=== PATIENT | female | born 1980 | race Caucasian/White ===

== ENCOUNTER 2018-09-14 17:11 | Emergency (ER) | payer OTHER ==
[2018-09-14 18:54] LABS: Urine Blood TRACE (NEG); Urine Glucose NEGATIVE (NEG); Urine Protein NEGATIVE (NEG); Urine Specific Gravity 1.025 (1.005-1.030)
[2018-09-14 19:13] LABS: Urine Bacteria <20 /HPF (<20); Urine Culture Reflex Order NOT NEEDED; Urine RBC <5 /HPF (NONE SEEN)
[2018-09-14 19:23] LABS: Absolute Lymphocytes (CBC) 2.7 K/uL (0.7-4.9); Absolute Monocytes 0.7 K/uL (0.1-1.3); Absolute Neutrophil 9.2 K/uL (1.8-8.0); Basophils % 0.7 % (0-1.3); Eosinophils % 2.2 % (0-4.4); Hematocrit 39.8 % (36.0-45.0); Lymphocytes % 20.8 % (15.3-44.8); MCH 31.1 pg (27.0-35.0); MCV 90.6 fL (80-100); MPV 7.9 fL (7.6-11.3); Monocytes % 5.3 % (3.3-12.3); RBC Red Blood Cell Count 4.39 M/uL (3.86-4.86)
[2018-09-14 20:05] LABS: BUN Blood Urea Nitrogen 10 mg/dL (7-18); Bicarbonate 28 mmol/L (21-32); Glucose Level 97 mg/dL (74-106); HCG, Quantitative 2494 mIU/mL (1-3); Potassium 3.4 mmol/L (3.5-5.1); Sodium Level 140 mmol/L (136-145)
--- NOTE | 2018-09-14 20:22 | EDPHYS ---
Physician Documentation [facility] Name: Vickie Aleman Age: 37 yrs Sex: Female : 1980 Arrival Date: 09/14/2018 Time: 17:16 Bed 30 Private MD: ED Physician Kenneth Watson HPI: 09/14 19:49 This 37 yrs old Female presents to ER via Ambulatory with complaints of snw Abdominal Pain. 19:49 The patient presents with abdominal pain in the lower abdomen. Onset: The snw symptoms/episode began/occurred suddenly, 3 day(s) ago, and became persistent. The symptoms do not radiate. Associated signs and symptoms: none. The symptoms are described as crampy. Modifying factors: The symptoms are alleviated by nothing. It is unknown whether or not the patient has had similar symptoms in the past. The patient has not recently seen a physician. 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 It has been more than one year since last vaccine. - Social history:: Smoking status: Patient/guardian denies using tobacco, never smoked. - Ebola Screening: : Patient negative for fever greater than or equal to 101.5 degrees Fahrenheit, and additional compatible Ebola Virus Disease symptoms Patient denies exposure to infectious person Patient denies travel to an Ebola-affected area in the 21 days before illness onset. ROS: 19:47 Constitutional: Negative for fever, chills, and weight loss, Eyes: Negative for injury, snw pain, redness, and discharge, ENT: Negative for injury, pain, and discharge, Neck: Negative for injury, pain, and swelling, Cardiovascular: Negative for chest pain, palpitations, and edema, Respiratory: Negative for shortness of breath, cough, wheezing, and pleuritic chest pain, Back: Negative for injury and pain, : Negative for injury, bleeding, discharge, and swelling, MS/Extremity: Negative for injury and deformity, Skin: Negative for injury, rash, and discoloration, Neuro: Negative for headache, weakness, numbness, tingling, and seizure. 19:47 Abdomen/GI: Positive for abdominal pain, . Exam: 19:47 Constitutional: This is a well developed, well nourished patient who is awake, alert, snw and in no acute distress. Head/Face: Normocephalic, atraumatic. Eyes: Pupils equal round and reactive to light, extra-ocular motions intact. Lids and lashes normal. Conjunctiva and sclera are non-icteric and not injected. Cornea within normal limits. Periorbital areas with no swelling, redness, or edema. ENT: Nares patent. No nasal discharge, no septal abnormalities noted. Tympanic membranes are normal and external auditory canals are clear. Oropharynx with no redness, swelling, or masses, exudates, or evidence of obstruction, uvula midline. Mucous membranes moist. Neck: Trachea midline, no thyromegaly or masses palpated, and no cervical lymphadenopathy. Supple, full range of motion without nuchal rigidity, or vertebral point tenderness. No Meningismus. Chest/axilla: Normal chest wall appearance and motion. Nontender with no deformity. No lesions are appreciated. Cardiovascular: Regular rate and rhythm with a normal S1 and S2. No gallops, murmurs, or rubs. Normal PMI, no JVD. No pulse deficits. Respiratory: Lungs have equal breath sounds bilaterally, clear to auscultation and percussion. No rales, rhonchi or wheezes noted. No increased work of breathing, no retractions or nasal flaring. Back: No spinal tenderness. No costovertebral tenderness. Full range of motion. Skin: Warm, dry with normal turgor. Normal color with no rashes, no lesions, and no evidence of cellulitis. MS/ Extremity: Pulses equal, no cyanosis. Neurovascular intact. Full, normal range of motion. Neuro: Awake and alert, GCS 15, oriented to person, place, time, and situation. Cranial nerves II-XII grossly intact. Motor strength 5/5 in all extremities. Sensory grossly intact. Cerebellar exam normal. Normal gait. Psych: Awake, alert, with orientation to person, place and time. Behavior, mood, and affect are within normal limits. 19:47 Abdomen/GI: Inspection: abdomen appears normal, Bowel sounds: normal, Palpation: mild abdominal tenderness, in the suprapubic area. Vital Signs: 17:49 BP 130 / 88; Pulse 91; Resp 16; Temp 98.3; Pulse Ox 100% on R/A; Weight 99.79 kg (R); rv Height 5 ft. 4 in. (162.56 cm) (R); Pain 7/10; 19:34 BP 113 / 69; Pulse 85; Resp 16; Pulse Ox 99% on R/A; rv 20:42 BP 139 / 97; Pulse 86; Resp 16; Pulse Ox 100% on R/A; rv 17:49 Body Mass Index 37.76 (99.79 kg, 162.56 cm) rv MDM: 17:48 Patient medically screened. snw 19:48 Data reviewed: vital signs, nurses notes. Data interpreted: Pulse oximetry: on room air snw is 99 %. Interpretation: normal. Counseling: I had a detailed discussion with the patient and/or guardian regarding: the historical points, exam findings, and any diagnostic results supporting the discharge/admit diagnosis. Awaiting: Ultrasound results. Special discussion: Based on the history and exam findings, there is no indication for further emergent testing or inpatient evaluation. I discussed with the patient/guardian the need to see the OB Gyne specialist for further evaluation of the symptoms. ED course: Pt is , last 2014. 09/14 17:41 Order name: Urine Culture [facility] 09/14 17:41 Order name: Urine Microscopic Only; Complete Time: 19:14 w 09/14 18:18 Order name: Urine Dipstick--Ancillary (enter results); Complete Time: 18:56 ms 09/14 18:18 Order name: Urine --Ancillary (enter results); Complete Time: 18:56 ms 09/14 18:56 Order name: Abo/rh Typing [facility] 09/14 18:56 Order name: Basic Metabolic Panel [facility] 09/14 17:41 Order name: Urine Test (obtain specimen); Complete Time: 18:19 snw 09/14 17:41 Order name: Urine Dipstick-Ancillary (obtain specimen); Complete Time: 18:19 w 09/14 18:56 Order name: CBC with Diff; Complete Time: 19:29 w 09/14 18:56 Order name: HCG-Quantitative; Complete Time: 20:20 snw 09/14 18:56 Order name: US Transvaginal Ob snw 09/14 18:57 Order name: ABO/RH typing; Complete Time: 20:20 EDMS 09/14 18:57 Order name: Basic Metabolic Panel; Complete Time: 20:20 EDMS 09/14 19:55 Order name: ABO/RH no charge; Complete Time: 19:56 EDMS 09/14 18:56 Order name: IV Saline Lock; Complete Time: 19:32 snw 09/14 18:56 Order name: Labs collected and sent; Complete Time: 19:32 snw 09/14 18:56 Order name: NPO; Complete Time: 19:32 snw Administered Medications: No medications were administered Disposition: 09/15 07:26 Co-signature as Attending Physician, Kenneth Watson MD I agree with the assessment and kdr plan of care. Disposition: 09/14/18 20:21 Discharged to Home. Impression: Threatened . - Condition is Stable. - Discharge Instructions: Threatened Miscarriage, First Trimester of , Pelvic Rest. - Prescriptions for Vitamin 27- 0.8 mg Oral Tablet - take 1 tablet by ORAL route once daily; 60 tablet. - Medication Reconciliation Form, Thank You Letter, Antibiotic Education, Prescription Opioid Use form. - Follow up: Private Physician; When: 2 - 3 days; Reason: Recheck today's complaints, Continuance of care, Re-evaluation by your physician. Follow up: Emergency Department; When: As needed; Reason: Worsening of condition. Follow up: Missy Fischer MD; When: 1 week; Reason: Recheck today's complaints, Continuance of care, Re-evaluation by your physician. Signatures: Dispatcher [employer] [facility] Kenneth Watson MD MD kdr Therrien, Shelly, COAL WASHER TENDER-C COAL WASHER TENDER-Patelw Long Martin RN RN rv Corrections: (The following items were deleted from the chart) 09/14 20:22 20:21 09/14/2018 20:21 Discharged to Home. Impression: Threatened . Condition snw is Stable. Forms are Medication Reconciliation Form, Thank You Letter, Antibiotic Education, Prescription Opioid Use. Follow up: Private Physician; When: 2 - 3 days; Reason: Recheck today's complaints, Continuance of care, Re-evaluation by your physician. Follow up: Emergency Department; When: As needed; Reason: Worsening of condition. sharad 20:43 20:22 09/14/2018 20:21 Discharged to Home. Impression: Threatened . Condition rv is Stable. Discharge Instructions: Threatened Miscarriage, First Trimester of , Pelvic Rest. Prescriptions for Vitamin 27-0.8 mg Oral Tablet - take 1 tablet by ORAL route once daily; 60 tablet. and Forms are Medication Reconciliation Form, Thank You Letter, Antibiotic Education, Prescription Opioid Use. Follow up: Private Physician; When: 2 - 3 days; Reason: Recheck today's complaints, Continuance of care, Re-evaluation by your physician. Follow up: Emergency Department; When: As needed; Reason: Worsening of condition. Follow up: Missy Fischer; When: 1 week; Reason: Recheck today's complaints, Continuance of care, Re-evaluation by your physician. sharad
--- NOTE | 2018-09-14 20:22 | ER ---
Nurse's Notes [facility] Name: Vickie Aleman Age: 37 yrs Sex: Female : 1980 Arrival Date: 09/14/2018 Time: 17:16 Bed 30 Private MD: Diagnosis: Threatened Presentation: 09/14 17:46 Presenting complaint: Patient states: "I WAS DOING THINGS AT THE HOUSE EARLIER WHEN I rv STARTED TO FEEL THE PAIN AT AROUND 1300H. IT IS LIKE CRAMPING OR SOMETIMES IT FEELS LIKE THERE IS SOMETHING PULLING. I AM A LITTLE BIT CONSTIPATED TOO.". Transition of care: patient was not received from another setting of care. Onset of symptoms was September 14, 2018 at 13:00. Risk Assessment: Do you want to hurt yourself or someone else? Patient reports no desire to harm self or others. Initial Sepsis Screen: Does the patient meet any 2 criteria? No. Patient's initial sepsis screen is negative. Does the patient have a suspected source of infection? No. Patient's initial sepsis screen is negative. Care prior to arrival: None. 17:46 Method Of Arrival: Ambulatory rv 17:46 Acuity: MELLO 3 rv Triage Assessment: 18:19 General: Appears in no apparent distress. uncomfortable, Behavior is calm, cooperative. rv Pain: Complains of pain in abdomen Pain currently is 7 out of 10 on a pain scale. 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 It has been more than one year since last vaccine. - Social history:: Smoking status: Patient/guardian denies using tobacco, never smoked. - Ebola Screening: : Patient negative for fever greater than or equal to 101.5 degrees Fahrenheit, and additional compatible Ebola Virus Disease symptoms Patient denies exposure to infectious person Patient denies travel to an Ebola-affected area in the 21 days before illness onset. Screenin:50 Abuse screen: Denies threats or abuse. Denies injuries from another. Nutritional rv screening: No deficits noted. Tuberculosis screening: No symptoms or risk factors identified. Fall Risk None identified. Assessment: 18:20 General: Appears in no apparent distress. uncomfortable, Behavior is calm, cooperative. rv Pain: Complains of pain in abdomen Pain currently is 7 out of 10 on a pain scale. Neuro: Level of Consciousness is awake, alert, obeys commands, Oriented to person, place, time, situation. Cardiovascular: Capillary refill < 3 seconds. Respiratory: Airway is patent. GI: Bowel sounds present X 4 quads. Abd is soft X 4 quads. : No signs and/or symptoms were reported regarding the genitourinary system. EENT: No signs and/or symptoms were reported regarding the EENT system. Derm: Skin is intact. Musculoskeletal: No signs and/or symptoms reported regarding the musculoskeletal system. Vital Signs: 17:49 BP 130 / 88; Pulse 91; Resp 16; Temp 98.3; Pulse Ox 100% on R/A; Weight 99.79 kg (R); rv Height 5 ft. 4 in. (162.56 cm) (R); Pain 7/10; 19:34 BP 113 / 69; Pulse 85; Resp 16; Pulse Ox 99% on R/A; rv 20:42 BP 139 / 97; Pulse 86; Resp 16; Pulse Ox 100% on R/A; rv 17:49 Body Mass Index 37.76 (99.79 kg, 162.56 cm) rv ED Course: 17:16 Patient arrived in ED. rg4 17:47 Diane Roberts FNP-C is [facility]. snw 17:48 Kenneth Watson MD is Attending Physician. snw 17:48 Triage completed. rv 18:19 Urine --Ancillary (enter results) Sent. rv 18:19 Urine Dipstick--Ancillary (enter results) Sent. rv 18:20 Arm band placed on right wrist. rv 18:20 Patient has correct armband on for positive identification. Bed in low position. Call rv light in reach. Side rails up X 1. Pulse ox on. NIBP on. 19:10 Initial lab(s) drawn, by me, sent to lab. Inserted saline lock: 20 gauge in right rv antecubital area, using aseptic technique. Blood collected. 19:32 Basic Metabolic Panel Sent. rv 19:32 ABO/RH typing Sent. rv 19:32 HCG-Quantitative Sent. rv 19:32 Basic Metabolic Panel Sent. rv 19:32 Abo/rh Typing Sent. rv 19:33 Awaiting: ultrasound. rv 19:33 Urine Culture Sent. rv 20:17 US Transvaginal Ob In Process Unspecified. EDMS 20:22 Missy Fischer MD is Referral Physician. snw 20:42 No provider procedures requiring assistance completed. IV discontinued, bleeding rv controlled, No redness/swelling at site. Pressure dressing applied. Administered Medications: No medications were administered Outcome: 20:21 Discharge ordered by . snw 20:43 Discharged to home ambulatory. rv 20:43 Condition: good 20:43 Discharge instructions given to patient, Instructed on discharge instructions, follow up and referral plans. medication usage, Demonstrated understanding of instructions, follow-up care, medications, Prescriptions given X 1. 20:43 Patient left the ED. rv Signatures: Dispatcher [employer] EDHI Diane Roberts, CAPTAIN OF GUARDS-C CAPTAIN OF GUARDS-CsnLennie Polk rg4 Long Martin, RN RN rv Corrections: (The following items were deleted from the chart) 19:33 19:33 Awaiting radiology results. rv rv
--- NOTE | 2018-09-14 20:44 | RAD REPORT ---
EXAM DESCRIPTION: US - Transvaginal OB - 09/14/2018 8:17 pm CLINICAL HISTORY: with abdominal pain and vaginal bleeding COMPARISON: None. FINDINGS: The uterus 9 x 6 x 7 centimeters. A gestational sac is present within the endometrium eva suring 5 millimeters. A yolk sac is not seen. A pole is not visualized. 2.3 centimeter right ovarian cysts. Left ovary was not seen. No significant free fluid is seen. IMPRESSION: 5 millimeter sac within the endometrium may represent a normal IUP in which the po le is not yet seen. as well as a pseudo gestational sac associated with an ectopic can also have this appearance. This all should be correlated clinically and with serial beta HCG levels. Followup endovaginal sonogr am in 1 week recommended
== END 2018-09-14 20:43 | disposition home or self-care (01) ==
LOC: ER 17:11
DX: O20.0 Threatened abortion (principal); Z3A.00 Weeks of gestation of pregnancy not specified
CPT/HCPCS: 36415; 76817; 80048; 81003; 81015; 81025; 84702; 85025; 86900; 86901; 87086; 87088; 99284